=== PATIENT | female | born 1965 | race African-American/Black ===

== ENCOUNTER 2016-09-24 07:26 | Observation (INO) | payer BC ==
[~2016-09-24] VITALS: Ht 157.5 cm; Wt 101.2 kg
--- NOTE | ~2016-09-24 | BMI ---
[facility] Nutrition Therapy DATE: 09/25/16 Patient: AYAD LESTER Physician: JOLIE Address: [address] [facility] Room/Bed: [address] [place] [address], Zip: [place] [address] Admit Date: 09/24/16 Date of : [birth year] Height: 5 2 Weight: 223 101.2 HIGH BMI NOTE: DX: 51 Y.O. FEMALE ADMITTED FOR CHEST PAIN ANTHROPOMETRICS: 5'2", WT: 220# (100 KG), BMI: 40.2 DIET: NPO RECOMMENDATIONS: 1. ONCE MEDICALLY FEASIBLE, ADVANCE DIET INDICATED TO HEALTHY HEART TO PROMOTE GRADUAL WEIGHT LOSS TOWARDS HEALTHY BMI (19.0-25.0) OR +/-10%IBW RD WILL F/U PER PROTOCOL Respectfully, GERARDO DE LA CRUZ MS, RD, LD Food and Nutritional Services [facility] cc: client file
--- NOTE | ~2016-09-24 | HP ---
Unit #: [id number] #: [id number] Patient: AYAD LESTER [id number] [facility]. [address] [place], [place] [address] [id number] I MR#: [id number] NAME: AYAD LESTER ROOM: 570 Age: 51 Sex: F Admission Date: 09/24/2016 : 1965 Attending Physician: Layo Martínez M.D. Primary Care Physician: Al Weiner M.D. HISTORY AND PHYSICAL HISTORY OF PRESENT ILLNESS This is a pleasant 51-year-old female with no significant past medical history of cardiac issues. She does have a history of multinodular goiter and is status post total thyroidectomy in 2011. She is followed by Dr. Martinez in the office. The patient denies any history of hypertension, hyperlipidemia, diabetes mellitus, or tobacco use. She also denies any history of CAD in first degree relatives. The patient presented to the emergency room secondary to reports of being awoken from sleep at approximately 5 a.m. this morning. The patient described it as feeling like someone was sitting on her chest, and she could not get her breath. She states it persisted despite taking Tums, therefore prompting her to come to the emergency room for evaluation. 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 In the ER, the patient was found to be hypertensive with blood pressure as high as 178/109. She did receive nitroglycerin paste and aspirin, as well as Pepcid, and at present, she reports she is pain free. Initial EKG shows normal sinus rhythm, rate of 60 beats per minute, low voltage, QTc interval of 414 msec, and no acute ischemic changes noted. Point of care troponin has been negative. 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 PAST SURGICAL HISTORY 1. Total thyroidectomy in 2011. 2. Hysterectomy. 3. section x2. 4. Tonsillectomy. 5. Tubal ligation. ALLERGIES No known drug allergies. HOME MEDICATIONS Synthroid 100 mcg p.o. daily. SOCIAL HISTORY The patient is a lifelong nonsmoker. She denies illicit drugs or alcohol. She works at [employer]. She does state she walks approximately two to three miles three to four times a week at [facility]. Unit #: [id number] #: [id number] Patient: AYAD LESTER FAMILY HISTORY Hypertension in her father, otherwise, denies any family history of coronary artery disease. REVIEW OF SYSTEMS Negative except for what was stated above in the HPI. A 10-point review of systems was completed. PHYSICAL EXAMINATION GENERAL: This is a pleasant 51-year-old female in no acute distress. She is being examined in the ER in T4. Her is present at bedside. HEENT: Head is atraumatic and normocephalic. Pupils are equal and round. NECK: Trachea is midline. No lymphadenopathy or thyromegaly. Incision is present. Carotid upstrokes are normal. No carotid bruits, no JVD. CARDIOVASCULAR: S1 and S2, regular rate and rhythm. No murmur, gallop, or rub. CHEST: Clear to auscultation. Good air entry. No adventitious breath sounds. No rales, no rhonchi, and no wheezes. ABDOMEN: Obese, soft, nontender, and nondistended. Bowel sounds are present. EXTREMITIES: Pulses are palpable. No clubbing, cyanosis, or edema. NEUROLOGIC: She is awake, alert, and oriented. She answers questions appropriate and moves all extremities with ease. DIAGNOSTIC STUDIES LABORATORY: Glucose 137, BUN 16, creatinine 1, sodium 140, potassium 3.7, chloride 105, and CO2 of 26. Coags were within normal limits. Point of care troponin was less than 0.05. Hemoglobin 11.9, hematocrit 35.8, WBC 4.8, and platelet count 270,000. IMAGING: Chest x-ray showed no active disease. CARDIOLOGY: EKG shows normal sinus rhythm, rate of 60 beats per minute, low voltage, QTc interval of 414 msec, and no acute ischemic changes noted. IMPRESSION 1. Chest pain, rule out myocardial infarction. 2. Uncontrolled hypertension with no prior history of hypertension per patient. 3. History of multinodular goiter with follicular adenoma, status post total thyroidectomy in [address] Martinez. 4. Obesity with body mass index of 40. PLAN The patient has been admitted secondary to complaints of chest pain. Will trend serial cardiac enzymes and EKGs. She was found to have elevated blood pressure on admission with no prior history of hypertension. The patient will be started on Norvasc 5 mg p.o. daily, as well as chlorthalidone 12.5 mg p.o. daily for blood pressure control. Will check fasting lipid panel, TSH, and T4, and repeat EKG as well. The patient has not had ischemic workup in the past. Will order a 2D echocardiogram and keep her overnight and schedule for exercise Cardiolite in the a.m. This has been discussed with Dr. Shea Naik. Further recommendations following the outcome of the echo and the exercise Cardiolite stress test. Dictated by Maryan Thornton A.P.R.N. for Unit #: [id number] #: [id number] Patient: AYAD LESTER Shea Naik M.D. LMW/am TD: 09/24/2016 15:38 JOB #: [id number] HISTORY AND PHYSICAL Page 1 of 1 X Maryan Thornton APRN X HISTORY AND PHYSICAL
--- NOTE | ~2016-09-24 | EKG ---
PATIENT: AYAD LESTER UNIT #: [id number] Ventricular Rate: 60 BPM Atrial Rate: 60 BPM P-R Interval: 154 ms QRS Duration: 76 ms Q-T Interval: 414 ms QTC Calculation(Bezet): 414 ms P [place]: 53 degrees Calculated T [place]: 28 degrees Diagnosis Line: Normal sinus rhythm Diagnosis Line: Normal ECG Diagnosis Line: When compared with ECG of 29-JAN-2012 12:00, Diagnosis Line: No significant change was found Diagnosis Line: Confirmed by VIVIEN ZIMMERMAN MD ([id number]) on 09/25/2016 Diagnosis Line: 7:34:15 PM INTERPRETING MD: ERASMO DELATORRE
--- NOTE | ~2016-09-24 | ST ---
Unit #: [id number] #: [id number] Patient: AYAD LESTER [id number] [facility]. [address] [address] [id number] I MR#: [id number] NAME: AYAD LESTER : 1965 SEX: F STUDY DATE/TIME: 09/25/2016 UNIT: [facility] ROOM: [facility] STUDY DESCRIPTION: Attending Physician: Layo Martínez M.D. Primary Care Physician: Al Weiner M.D. CARDIOLOGY REPORT EXAM Exercise Cardiolite stress test. FINDINGS Baseline EKG: Normal sinus rhythm with ventricular rate 67 beats per minute, T-wave inversion in V1, slow R-wave progression, some T-wave inversion in lead III. PROCEDURE Patient walked on the treadmill for 8 minutes utilizing Loy protocol, achieving a workload of 10.4 METs. Next, 86% of maximum target heart rate achieved at 148 beats per minute with a maximum blood pressure response of 156/80 mmHg. EKG during the test showed some nonspecific ST-T wave abnormalities in inferolateral leads with T-wave inversion in lead III and some 0.[address] depression inferolateral leads. IMPRESSION 1. Functional class III with a workload of 10.4 METs. 2. Patient walked for eight minutes, achieving 86% of maximum target heart rate at 148 beats per minute with a blood pressure response of 156/80 mmHg. 3. EKG during the test showed a 0.[address] depression inferolateral leads with T-wave inversion in lead III. 4. Patient had no complaints of chest pain, palpitations, or dizziness. Had increased shortness of breath and fatigueness which resolved in recovery phase. 5. Cardiolite was injected at maximum target heart rate. Radionuclide test pending. Please correlate with nuclear images. Dictated by... Tejal Astorga A.P.R.NWilbert for Demetrius Acevedo/norma TD: 09/25/2016 10:50 JOB #: [id number] Unit #: [id number] #: [id number] Patient: AYAD LESTER CARDIOLOGY REPORT Page 1 of 1 X Tejal Astorga APRN CARDIOLOGY REPORT
--- NOTE | ~2016-09-24 | TH ---
Unit #: [id number] #: [id number] Patient: AYAD LESTER [id number] [facility]. [address] [place], [place] [address] [id number] I MR#: [id number] NAME: AYAD LESTER : 1965 SEX: F STUDY DATE/TIME: 09/25/2016 UNIT: [facility] ROOM: 570 STUDY DESCRIPTION: Attending Physician: Layo Martínez M.D. Primary Care Physician: Al Weiner M.D. CARDIOLOGY REPORT EXAM Exercise Cardiolite stress test, nuclear portion. PROCEDURE Using technetium 99m labeled Cardiolite, rest and stress SPECT images were obtained. Multiple SPECT images were obtained in various views including horizontal and vertical long axis and short axis views of the left ventricle. Images were obtained by gated SPECT method. The patient was administered 10.27 mCi of Cardiolite at rest. The patient was administered 32.6 mCi of Cardiolite at peak exercise. Total exercise time is 8 minutes. On the stress images, there is normal perfusion noted. The rest images show normal perfusion. Comparing rest and stress images, there is no stress-induced ischemia noted. The left ventricular ejection fraction is calculated to be 72%. There is no focal wall motion abnormality seen. CONCLUSION 1. No stress-induced ischemia noted. 2. The left ventricular ejection fraction is calculated to be 72%. 3. There is no focal wall motion abnormality seen. 4. Normal exercise Cardiolite stress test. Dictated by... Demetrius Acevedo TD: 09/25/2016 12:47 JOB #: [id number] CARDIOLOGY REPORT Page 1 of 1 X Shea Naik MD <ELECTRONICALLY SIGNED> 11/14/16 1524 CARDIOLOGY REPORT
--- NOTE | ~2016-09-24 | CR72 ---
[facility] A Service of [facility] RADIOLOGY TEXT RESULTS PATIENT: AYAD LESTER LOCATION: [facility] 570-01 : [birth year] UNIT #: [id number] AGE: [address]: Layo Martínez MD SEX: F ORDER DR: [id number] [facility] [address] [facility]. [place], [place] [address] [id number] MR#: [id number] Acc #: [id number] NAME: AYAD LESTER : 1965 SEX: F STUDY DATE/TIME: 09/24/2016 7:54 UNIT: [facility] ROOM: STUDY DESCRIPTION: CR Chest Single View Portable Attending Physician: Ryan Padilla D.O. Ordering Physician: Ryan Padilla D.O. Primary Care Physician: Al Weiner M.D. MEDICAL IMAGING REPORT This report is preliminary unless electronic signature is present EXAM Portable chest. HISTORY Chest pain, shortness of air, onset this morning. COMPARISON 02/16/2015 FINDINGS A single AP portable view of the chest shows both lungs to be clear. The heart is normal in size. The mediastinal contour is normal. No significant bone abnormalities are seen. IMPRESSION Normal portable chest. Dictated by... Adams Adams M.D. THIS IS AN ELECTRONICALLY VERIFIED REPORT Adams Adams M.D. at 09/24/2016 5:12 PM Mary Jane TD: 09/24/2016 11:27 JOB #: [id number] MEDICAL IMAGING REPORT Page 1 of 1 COPY
--- NOTE | ~2016-09-24 | EKG ---
PATIENT: AYAD LESTER UNIT #: [id number] Ventricular Rate: 75 BPM Atrial Rate: 75 BPM P-R Interval: 146 ms QRS Duration: 74 ms Q-T Interval: 396 ms QTC Calculation(Bezet): 442 ms P [place]: 61 degrees Calculated R Perry: 10 degrees Calculated T Perry: 40 degrees Diagnosis Line: Normal sinus rhythm Diagnosis Line: Nonspecific T wave abnormality Diagnosis Line: Abnormal ECG Diagnosis Line: When compared with ECG of 24-SEP-2016 07:30, Diagnosis Line: (unconfirmed) Diagnosis Line: Nonspecific T wave abnormality now evident in Diagnosis Line: Lateral leads Diagnosis Line: Confirmed by VIVIEN ZIMMERMAN MD ([id number]) on 09/25/2016 Diagnosis Line: 7:42:36 PM INTERPRETING MD: ERASMO DELATORRE
[~2016-09-24 07:26] MED LIST: ACETAMINOPHEN PO; CALCIUM 500+VI1 EACH PO; CIPRO PO; FLAGYL PO; FLEXERIL PO; LEVOTHROID100 MC1 PO; LORTAB 7.5-5001 TAB PO; MOBIC PO; NO MEDICATIONS; NORCO 5/325 TAB1 TAB PO; PHENERGAN25 MG PO; THYROID; UNK ABX; [UNRECOGNIZED DRUG - REMARK]
[2016-09-24 08:13] LABS: BASOPHIL% 0.7 % (0-2.5); EOSINOPHIL# 0.2 X10e3 (0-0.7); EOSINOPHIL% 3.5 % (0.0-7.0); HEMATOCRIT 35.8 % (35.0-45.0); HEMOGLOBIN 11.9 gm/dL (12.0-16.0); LYMPHOCYTE# 1.6 X10e3 (1.0-3.5); LYMPHOCYTE% 32.1 % (17.0-45.0); MEAN CORPUSCULAR HEMOGLOBIN 25.5 PG (28-34); MEAN CORPUSCULAR HGB CONC 33.2 g/dL (30-36); MEAN PLATELET VOLUME 7.5 FL (6.5-11.5); MONOCYTE# 0.4 X10e3 (0-1.0); MONOCYTE% 7.2 % (3.0-12.0); NEUTROPHIL# 2.7 X10e3 (1.5-7.1); NEUTROPHIL% 56.5 % (40-75); PLATELET COUNT 270 X10e3 (140-420); RED BLOOD COUNT 4.64 X10e (3.90-5.30); WHITE BLOOD COUNT 4.8 X10e3 (4.0-10.5)
[2016-09-24 08:17] LABS: DIFF IND NO
[2016-09-24 08:24] LABS: POC - CKMB <1.0 ng/mL (0.0-7.9); POC - TROPONIN <0.05 ng/mL (<=0.05)
[2016-09-24 08:32] LABS: PARTIAL THROMBOPLASTIN TIME 26.3 SECONDS (23.5-31.3); PROTHROMBIN TIME (PATIENT) 10.8 SECONDS (10.0-11.7)
[2016-09-24 09:08] LABS: ALBUMIN SERUM 3.7 g/dL (3.5-5.0); BILIRUBIN, DIRECT 0.1 mg/dL (0.0-0.2); BILIRUBIN,INDIRECT 0.6 mg/dL (0.0-0.9); BILIRUBIN,TOTAL 0.7 mg/dL (0.2-2.0); CALCIUM SERUM 10.2 mg/dL (8.4-10.2); GLOM FILT RATE Estimated 76.6 mL/min (>60); POTASSIUM 3.7 mmol/L (3.5-5.1); PROTEIN TOTAL SERUM 6.7 g/dL (6.0-8.3)
[2016-09-24 10:13] LABS: POC - CKMB <1.0 ng/mL (0.0-7.9); POC - TROPONIN <0.05 ng/mL (<=0.05)
[2016-09-24] MEDS ORDERED: SYNTHROID PO (10:39)
[2016-09-24] MEDS ORDERED: PATIENT'S PHARMACY (10:39)
[2016-09-24 13:37] LABS: %MB 1.7 % (0.0-4.0); MB 1.4 ng/ml
[2016-09-24 13:44] LABS: THYROID STIMULATING HORMONE 8.91 uIU/ml (0.34-5.60)
[2016-09-24 13:48] LABS: CHOLESTEROL 177 mg/dL (0-200); HDL CHOLESTEROL 36 mg/dL (35-95); LDL CHOLESTEROL 122 mg/dL (-130); LDL/HDL RATIO 3 RATIO (0-4); TRIGLYCERIDES 96 mg/dL (10-160)
[2016-09-24 13:51] LABS: FREE THYROXIN (T4) 0.84 ng/dL (0.58-1.64)
[2016-09-25 05:39] LABS: HEMATOCRIT 35.8 % (35.0-45.0); HEMOGLOBIN 11.8 gm/dL (12.0-16.0); MEAN CELL VOLUME 77.1 FL (83-96); MEAN CORPUSCULAR HEMOGLOBIN 25.4 PG (28-34); RED BLOOD COUNT 4.65 X10e (3.90-5.30); RED CELL DISTRIBUTION WIDTH 13.8 % (11.0-15.5); WHITE BLOOD COUNT 5.6 X10e3 (4.0-10.5)
[2016-09-25 06:25] LABS: BUN/CREATININE RATIO 21.25; CALCIUM SERUM 9.1 mg/dL (8.4-10.2); CREATININE SERUM 0.8 mg/dL (0.6-1.4); GLOM FILT RATE Estimated 100.4 mL/min (>60); POTASSIUM 3.5 mmol/L (3.5-5.1)
[2016-09-25] MEDS ORDERED: AMLODIPINE BESYL5 MG PO (14:20)
[2016-09-25] MEDS ORDERED: CHLORTHALIDONE25 MG PO (14:21)
== END 2016-09-25 15:36 | disposition home or self-care (01) | DRG 313 ==
LOC: CED 07:26 → C5C 10:30 → CEDOF 10:30 → CED 11:31 → CEDOF 11:31 → C5C 12:56
PROVIDERS: Emergency Medicine; Internal Medicine Cardiovascular Disease; Nurse Practitioner
DX: R07.9 Chest pain, unspecified (principal); I10 Essential (primary) hypertension; E66.9 Obesity, unspecified; Z68.41 Body mass index [BMI] 40.0-44.9, adult; Z82.49 Family history of ischemic heart disease and other diseases of the circulatory system; Z79.899 Other long term (current) drug therapy; E89.0 Postprocedural hypothyroidism; Z90.710 Acquired absence of both cervix and uterus; Z98.51 Tubal ligation status; Z98.890 Other specified postprocedural states
CPT/HCPCS: 36415; 71010; 78452; 80048; 80061; 80076; 82550; 82553; 84439; 84443; 84484; 85025; 85027; 85610; 85730; 93005; 93017; 93306; 94760; 96374; 99285; A9500; G0378